=== PATIENT | female | born 1970 | race Caucasian/White ===

== ENCOUNTER 2017-08-09 23:03 | Emergency (ER) | payer OTHER ==
[~2017-08-09] VITALS: Ht 165.1 cm; Wt 73.2 kg
[~2017-08-09 23:03] MED LIST: CIPRO500 MG PO; DEPO-PROVER150 MG/ML IM; FIORICET,ESG1 TABLET PO; METFORMIN HCL500 MG PO; TORADOL10 MG PO
[2017-08-10 01:17] VITALS: BP 163/86
== END 2017-08-10 01:18 | disposition home or self-care (01) ==
LOC: EME 23:03
DX: R51 Headache (principal); E11.9 Type 2 diabetes mellitus without complications; E78.5 Hyperlipidemia, unspecified; I10 Essential (primary) hypertension; F17.200 Nicotine dependence, unspecified, uncomplicated
CPT/HCPCS: 99281; 99284; J3030